=== PATIENT | female | born 1955 | race Caucasian/White ===

== ENCOUNTER → 2019-01-03 | Outpatient (CLI) | payer OTHER ==
--- NOTE | 2019-01-05 23:34 | MR ---
EXAMINATION TYPE: MR elbow LT wo con DATE OF EXAM: 01/03/2019 COMPARISON: None HISTORY: Left elbow pain x 7 months Standard multiplanar, multisequence MRI departmental protocol Multiplanar, multisequence images of the left elbow were acquired. FINDINGS: There is elbow joint effusion. The triceps tendon is intact. There is 7 mm degenerative cys t in the proximal ulna. This is seen at the articular surface with the humerus. There is some mild in creased signal also in the coronoid process of the ulna and in the medial aspect of the proximal ulna consistent with bone edema.. The distal humerus is intact. Collateral ligaments appear intact. Radia l head is intact. The biceps tendon is intact. Brachialis tendon is intact. I see no fracture line. There is no evidenc e of soft tissue mass. IMPRESSION: There is a large elbow joint effusion. There is multiple areas of edema involving the proximal ulna c onsistent with bone bruise and degenerative cyst formation. This is seen in the olecranon process, th e coronary process and the articular surface of the ulna. No fracture seen. No evidence of ligament o r tendon tear.
== END ==
LOC: RADMRIMAIN 18:24
PROVIDERS: ATTEND Family Medicine
DX: M25.422 Effusion, left elbow (principal); R60.1 Generalized edema

== ENCOUNTER → 2019-01-23 | Outpatient (CLI) | payer OTHER ==
--- NOTE | 2019-01-24 08:01 | BD ---
EXAMINATION TYPE: Axial Bone Density DATE OF EXAM: 01/23/2019 COMPARISON: NONE CLINICAL HISTORY: 63 YR OLD FEMALE...ICD-10 CODE: Z78.0 POSTMENOPAUSAL Height: 59.3 Weight: 165 FRAX RISK QUESTIONS: Family History (Parent hip fracture): YES Glucocorticoids (More than 3mos): YES (Ex: prednisone, prednisolone, methylprednisolone, dexamethasone, and hydrocortisone). Rheumatoid Arthritis: YES RISK FACTORS HISTORY OF: Family History of Osteoporosis: YES, MOTHER AND SISTER, MOTHER WITH BACK FRACTURES Postmenopausal woman: YES AT AGE 53 MEDICATIONS: Prednisone or other steroids: YES, PREDNISONE, RA, NEWLY DIAGNOSED FOR ABOUT 2 MOS NOW Additional Medications: NOTHING ADDITIONAL TO NOTE FOR THIS TEST Additional History: RA EXAM MEASUREMENTS: Bone mineral densitometry was performed using the [employer] System. Bone mineral density as measured about the Lumbar spine is: ----- L1-L4(G/cm2): 0.992 T Score Values are as follows: ----- L1: -2.5 ----- L2: -1.9 ----- L3: -1.6 ----- L4: -0.6 ----- L1-L4: -1.6 Bone mineral density FIRST DEXA SCAN AT [facility] Bone mineral density about the R hip (g/cm2): 0.823 Bone mineral density about the L hip (g/cm2): 0.853 T Score values are as follows: -----R Neck: -1.9 -----L Neck: -2.0 -----R Total: -1.5 -----L Total: -1.2 Bone mineral density FIRST DEXA AT [facility] FRAX%s: THERE IS A 20.7% CHANCE FOR A MAJOR OSTEOPOROTIC FX AND A 1.9% FOR HIP....PROBABILITY FOR FX IN 10 YRS TIME IMPRESSION: Osteopenia (T Score between -2.5 and -1). There is slightly increased risk of fracture and the patient may be considered for treatment. Re-Screen 2-5 years. NOTE: T-SCORE=SD OF THE YOUNG ADULT MEAN.
--- NOTE | 2019-01-27 08:13 | MM ---
Reason for exam: screening (asymptomatic). History: Patient is postmenopausal. Family history of breast cancer in paternal aunt at age 60. Physical Findings: A clinical breast exam by your physician is recommended on an annual basis and results should be correlated with mammographic findings. MG Screening Mammo w CAD Bilateral CC and MLO view(s) were taken. The breast tissue is heterogeneously dense. This may lower the sensitivity of mammography. There are benign appearing oval circumscribed stable left upper inner quadrant masses back to 2013. Benign appearing bilateral calcifications. No suspicious abnormality. No significant changes when compared with prior studies. ASSESSMENT: Benign, BI-RAD 2 RECOMMENDATION: Routine screening mammogram of both breasts in 1 year.
== END | disposition home or self-care (01) ==
LOC: RADMAMWWP 15:14
PROVIDERS: ATTEND Family Medicine
DX: Z12.31 Encounter for screening mammogram for malignant neoplasm of breast (principal); M85.80 Other specified disorders of bone density and structure, unspecified site; Z78.0 Asymptomatic menopausal state
CPT/HCPCS: 77067; 77080

== ENCOUNTER → 2020-02-24 | Outpatient (CLI) | payer OTHER ==
[2020-02-24 16:59] LABS: HCT 33.6 % (34.0-46.0); HGB 11.3 gm/dL (11.4-16.0); MCH 30.6 pg (25.0-35.0); MCHC 33.6 g/dL (31.0-37.0); MCV 91.1 fL (80.0-100.0); Mean Platelet Volume 7.8; Platelet Count 273 k/uL (150-450); RBC 3.69 m/uL (3.80-5.40); RDW 13.4 % (11.5-15.5); WBC 6.1 k/uL (3.8-10.6)
[2020-02-24 17:07] LABS: ALT 25 U/L (4-34); AST 29 U/L (14-36); African American GFR (CKD) >90 (>60 ml/min/1.73 sqM); Albumin 4.5 g/dL (3.5-5.0); Alkaline Phosphatase 70 U/L (38-126); Anion Gap 8 mmol/L; Blood Urea Nitrogen 17 mg/dL (7-17); Calcium 9.7 mg/dL (8.4-10.2); Carbon Dioxide 24 mmol/L (22-30); Chloride 106 mmol/L (98-107); Glucose 95 mg/dL (74-99); Non-African American GFR(CKD) >90 (>60 ml/min/1.73 sqM); Potassium 4.2 mmol/L (3.5-5.1); Sodium 138 mmol/L (137-145); Total Bilirubin 0.6 mg/dL (0.2-1.3); Total Protein 7.7 g/dL (6.3-8.2)
[2020-02-24 17:30] LABS: Appearance,Urine Clear (Clear); Bacteria,Urine Many /hpf; Bilirubin,Urine Negative (Negative); Blood,Urine Small (Negative); Color,Urine Light Yellow; Glucose,Urine (UA) Negative (Negative); Hyaline Casts,Urine 1 /lpf (0-2); Ketones,Urine Negative (Negative); Leukocyte Esterase,Urine Negative (Negative); Mucus,Urine Rare /hpf; Nitrite,Urine Negative (Negative); Protein,Urine Negative (Negative); Specific Gravity,Urine 1.009 (1.001-1.035); Squamous Epithelial Cell,Urine <1 /hpf (0-4); Urobilinogen,Urine <2.0 mg/dL (<2.0); WBC,Urine 2 /hpf (0-5)
[2020-02-24 18:32] LABS: Partial Thromboplastin Time 24.8 sec (22.0-30.0)
== END | disposition home or self-care (01) ==
LOC: LABWHC1 16:11
PROVIDERS: ATTEND Orthopaedic Surgery
DX: Z01.818 Encounter for other preprocedural examination (principal); Z01.812 Encounter for preprocedural laboratory examination; M17.12 Unilateral primary osteoarthritis, left knee
CPT/HCPCS: 80053; 81001; 85027; 85610; 85730; 87070

== ENCOUNTER 2020-03-03 08:42 | Day surgery (SDC) | payer OTHER ==
[2020-02-27 09:47] VITALS: BMI 33.2
[~2020-03-03 08:42] MED LIST: ACETAMINOPHEN TAB 500 MG TAB PO ONE; FAMOTIDINE 20 MG/2 ML VIAL IV PRN; HYDROmorphone 0.5 MG/0.5 ML SYRINGE IVP PRN; LIDOCAINE 1% (10MG/ML) FOR IV START INTRADERMA PRN; MELOXICAM 7.5 MG TAB PO ONE; ONDANSETRON 4 MG/2 ML VIAL IVP ONE; TRANEXAMIC ACID 1,000 MG in SODIUM CHLORIDE 0.9% 100 ML IVPB ONE
[2020-03-03] MEDS: LACTATED RINGERS 1,000 ML IV SCH ×4 (09:36→21:18)
[2020-03-03] MEDS ORDERED: MIDAZOLAM 2 MG/2 ML VIAL IV ONE (10:08)
[2020-03-03] MEDS ORDERED: fentaNYL (PF) 50 MCG/ML 2 ML AMP IV ONE (10:09)
[2020-03-03] MEDS ORDERED: ROPIVACAINE 0.2%-NS ON-Q PUMP 1,090 MG, EMPTY PAIN BALL 1 EACH MISCELLANE PRN (10:59)
--- NOTE | 2020-03-03 11:02 | P.ANPRN ---
Procedure Note - Anesthesia - Nerve Block Performed Left Adductor Canal Time Out Performed: Yes (:) Date of Procedure: 03/03/20 Procedure Start Time: Procedure Stop Time: Location of Patient: PreOp Indication: Acute Post-Operative Pain, Requested by Surgeon (Dr Bansal) Sedation Type: Sedate with meaningful contact maintained Preparation: Sterile Prep, Sterile Dressing Position: Supine Catheter: Indwelling Needle Types: Pajunk Needle Gauge: 21 Ultrasound used to visualize needle placement: Yes Ultrasound used to observe medication spread: Yes Injectate: 0.5% Ropivacaine (see comment for volume) (20cc) Blood Aspirated: No Pain Paresthesia on Injection Noted: No Resistance on Injection: Normal Image Stored and Saved: Yes Events: Uneventful and Well Tolerated
[2020-03-03] MEDS ORDERED: TRANEXAMIC ACID 1,000 MG/10 ML VIAL ONE (11:34)
[2020-03-03] MEDS ORDERED: PROPOFOL 10 MG/ML 20 ML VIAL IV ONE (11:34)
[2020-03-03] MEDS ORDERED: LIDOCAINE 1% INJ 10MG/ML (20 ML MDV) ONE (11:34)
[2020-03-03] MEDS ORDERED: fentaNYL (PF) 50 MCG/ML 2 ML AMP ONE (11:34)
[2020-03-03] MEDS ORDERED: MIDAZOLAM 2 MG/2 ML VIAL ONE (11:34)
[2020-03-03] MEDS ORDERED: SODIUM CHLORIDE 0.9% 100 ML BAG ONE (11:34)
[2020-03-03] MEDS ORDERED: ceFAZolin 3,000 MG in SODIUM CHLORIDE 0.9% IRRIGATIO 3,000 ML IRRIGATION ONE (11:37)
[2020-03-03] MEDS: ROPIVACAINE 246.25 MG, EPINEPHrine 0.5 MG, KETOROLAC 30 MG, cloNIDine HCL/PF 80 MCG, WA... MISCELLANE ONE ×10 (12:08→12:28)
[2020-03-03] MEDS ORDERED: LACTATED RINGERS 1,000 ML IV ONE ×2 (12:47→12:59)
--- NOTE | 2020-03-03 13:09 | P.OP ---
Date of Procedure: 03/03/20 Procedure(s) Performed: PREOPERATIVE DIAGNOSIS: Left knee severe osteoarthritis with genu varum POSTOPERATIVE DIAGNOSIS: Left knee severe osteoarthritis with genu varum OPERATION: Left knee cemented total replacement arthroplasty. ANESTHESIA: Spinal ESTIMATED BLOOD LOSS: 50 ml. A P SUPERVISOR: Brandi Reilly PA-C (assistance with: patient positioning, retraction, exposure, hemostasis, leg positioning, implantation, irrigation, closure, dressing) COMPLICATIONS: None apparent. COMPONENTS IMPLANTED: Journey II total knee system from [employer], [place] INDICATIONS: Mrs. Becerril is a 64 year old female with a history of left knee osteoarthritis. The patient's knee is end-stage, and conservative management has failed. The operation of knee replacement has been discussed at length in the office, as well as potential risks and complications. These are inclusive of, but not limited to: bleeding, infection, scarring, discomfort, blood vessel and nerve damage, need for further surgery, failure to relieve symptoms, persistence, recurrence, or worsening of problems, loosening, dislocation, wear, blood clot, pulmonary embolism, , gait dysfunction, stiffness, and other risks as discussed in the office. The patient elects to proceed and the consent form has been signed. PROCEDURE: The patient was taken to the operating room and positioned on the operating room table in the supine position. Anesthesia was initiated. Care was taken to make sure that all pressure points were adequately padded. The operative lower extremity was prepped and draped in the usual aseptic fashion using ChloraPrep. Ioban drape was used for the case and the patient received intravenous antibiotics within one hour of the incision. A pneumotourniquet and leg lindsay were used for the case. The limb was exsanguinated with an Esmarch bandage and the tourniquet was inflated to 350 mmHg. Time-out was called confirming the patient's identity, side, procedure and administration of antibiotics and tranexamic acid. The incision was then created midline directly over the left knee, carried down through skin and into the subcutaneous tissues and down to fascia. Full thickness subcutaneous medial flap was developed. Medial parapatellar arthrotomy was performed and the interior of the knee was inspected. There was end-stage osteoarthritis of the knee with a mild to moderate genu varum type deformity. The fat pad was excised and proximal medial release on the tibia was completed using meticulous dissection and a curved osteotome. The anterior cruciate ligament was taken down. Note was made of significant attrition of the anterior and significant degenerative appearance of the cruciate ligaments. The exposure was excellent. The knee was flexed 90 degrees and the patella was everted. The [employer] pre- made distal cutting block was attached and pinned into position. The planned cut was analyzed visually and with the alignment glynn and found to be satisfactory without the need for any adjustment. The oscillating saw was then used to make the distal femoral cut and make the alignment holes for the 5 in 1 block. This cut was confirmed to be flat with the flat end of an osteotome. The 5 in 1 block was then used to create the anterior posterior condylar resections and the chamfer cuts. The retractors were placed around the tibia and the tibial surface was addressed. The [employer] pre-made guide was placed onto the exposed tibial surface and pinned into position to ramona the rotational alignment. The alignment of the guide was checked for depth of plannned resection, slope, and varus valgus. Guide was confirmed to be in good position and the tibial cut was then created with protection of the posterior neurovascular structures and the collateral ligaments. The tibial cut surface was removed and sized. Spacer block technique was then used to confirm that the flexion and extension gaps were equal. Soft tissue releases and adjustment of the tibial and/or femoral cuts were made, as necessary, until the gaps were equal. This included release of the posterior cruciate ligament, which was excessively tight in this patient. Prior to placing trial components, anesthetic solution consisting of ropivicaine with epinephrine, ketorolac, and clonidine was injected carefully and methodically in a grid pattern using aspiration technique into the soft tissue around the knee circumferentially, starting with the deeper tissues first and progressing to fascia, and then finally the skin/subcutaneous tissue. Particular care was taken when injecting the posterior capsule, with avoidance of the midline posterior area. The trial components were inserted. The tibial tray was allowed to self center and the patella was noted to track very well. The position of the tibial component was marked and noted to be nearly exactly aligned with the pre-drilled holes from the [employer] guide. The tibia was then finished for a stemmed tibial component. Patellar resurfacing was performed using a reamer. The size of the required patellar component was estimated and the patellar surface was then reamed down to a residual thickness which would recreate the [place] thickness with the component. The exact placement of the patellar component was adjusted for position based on preoperative x-rays and intraoperative findings. Trial components were removed and the cut surfaces of the bone were pulse lavaged thoroughly and dried. Cement was mixed on the back table and applied to the final components. Cement was then applied to the tibial surface and pressurized into the surface using finger pressurization technique. The tibial component was then applied and excess cement was removed after it was impacted securely and noted to be flush with the cut surface. In similar fashion, the cement was applied to the cut femoral surface, pressurized in using finger pressurization and the component was impacted into place. Excess cement was removed. The polyethylene spacer was then implanted and locked into position. The patellar component was then applied in similar technique and a patellar clamp was used to hold the patella in place as the cement hardened. Once the cement had fully hardened, the knee was reinspected. Any other cement extrusion was removed and final kinematic testing showed range of motion from 0 to 130 degrees with excellent stability, both medially and laterally and appropriate alignment of the leg. Patellar tracking was excellent. The knee was then thoroughly pulse lavaged with normal saline. The tourniquet was deflated and hemostasis was obtained with electrocautery and IV tranexamic acid, 1 g given at the start of the operation and 1 g at the start of closure. Closure was with #2 Ethibond in the fascia/capsule and supplemented with #2 Quill, 2-0 Vicryl suture was used for the subcutaneous tissues and 3-0 Quill for the skin. Dermabond was then applied. Optifoam dressing thereafter. A lightly compressive dressing was applied using Webril and an Castro wrap. The patient was then transferred to stretcher and taken to the recovery room in stable condition. Sponge and needle counts were correct.
[2020-03-03] MEDS ORDERED: MAGNESIUM HYDROXIDE 2,400 MG/10 ML CUP PO PRN (13:53)
[2020-03-03] MEDS ORDERED: HYDROcodone/APAP 5-325MG 1 EACH TAB PO PRN ×2 (13:53)
[2020-03-03] MEDS ORDERED: bisacodyL 10 MG SUPP RECTAL PRN (13:53)
[2020-03-03] MEDS ORDERED: hydrOXYzine pamoate 25 MG CAP PO PRN (13:53)
[2020-03-03] MEDS ORDERED: HYDROmorphone 0.5 MG/0.5 ML SYRINGE IVP PRN ×2 (13:53)
[2020-03-03] MEDS ORDERED: HYDROmorphone 1 MG/ML 1 ML SYRINGE IVP PRN (13:53)
[2020-03-03] MEDS ORDERED: NA PHOS,M-B/NA PHOS,DI-BA 133 ML ENEMA RECTAL PRN (13:53)
[2020-03-03] MEDS ORDERED: NALOXONE 0.4 MG/ML 1 ML VIAL IV PRN (13:53)
--- NOTE | 2020-03-03 15:19 | XR ---
EXAMINATION TYPE: XR knee limited LT DATE OF EXAM: 03/03/2020 CLINICAL HISTORY: Left knee pain and arthritis status post total knee replacement. TECHNIQUE: Portable AP and crosstable lateral views of the left knee are obtained immediately postop eratively. COMPARISON: None FINDINGS: Metallic hardware from total left knee arthroplasty is seen and appears satisfactory in al ignment and position. There is evidence of recent surgery with diffuse subcutaneous gas and tissue i rregularity. No unexpected radiopaque foreign body. No acute fracture or dislocation seen. IMPRESSION: METALLIC HARDWARE FROM TOTAL LEFT KNEE ARTHROPLASTY IS SATISFACTORY IN ALIGNMENT.
[2020-03-03] MEDS: ASPIRIN 81 MG PO SCH (20:40)
[2020-03-03] MEDS ORDERED: SENNOSIDES-DOCUSATE SODIUM 1 EACH TAB PO SCH (21:00)
[2020-03-04 07:45] VITALS: BP 125/73; PULSE 69; RESP 17; TEMP 98.6
[2020-03-04] MEDS: ASPIRIN 81 MG PO SCH (08:00)
--- NOTE | 2020-03-04 08:48 | P.DS ---
Providers Expected date of discharge: 03/04/20 Attending physician: Isma Bansal Consults: 03/03/20 13:53 Consult Physician Routine Consulting Provider: Alin Escamilla Consult Reason/Comments: Medical management Do you want consulting provider notified?: Yes Primary care physician: Rajni Cortez - Discharge Diagnosis(es) (1) Primary localized osteoarthritis of left knee Current Visit: Yes Status: Acute (2) Status post total left knee replacement Current Visit: Yes Status: Acute Hospital Course: This is a 64 -year-old female who was last seen with complaint of continued left knee pain. The patient has a known history of degenerative arthritis of the left knee and presents to discuss surgical options. After discussion and consideration the patient elects to proceed with total left knee arthroplasty. The patient is seen preoperatively by and cleared for surgery. The patient is admitted to [facility] for total left knee arthroplasty. The procedures performed without complication or sequelae. She is doing well postoperatively. Vital signs are stable at discharge. Labs are stable at discharge. The patient was on 2 L of O2 per nasal cannula but sats are 94 on room air after ambulation today.The patient is ambulating well with walker with minimal assistance. The patient is discharged to home on postop day #1 pending medical clearance. Please see orders and refer to the med rec for accurate list of medications. Plan - Discharge Summary Discharge Rx Participant: Yes New Discharge Prescriptions: New Aspirin [Adult Low Dose Aspirin EC] 81 mg PO BID #1 tablet. Meloxicam [Mobic] 1 - 2 tab PO DAILY PRN #30 tab PRN Reason: Pain HYDROcodone/APAP 7.5-325MG [Jal 7.5-325] 1 - 2 tab PO Q4-6H PRN #42 tab PRN Reason: Pain Sennosides-Docusate Sodium [Senokot-S] 1 tab PO BID #60 tablet hydrOXYzine pamoate [Vistaril] 25 mg PO Q4-6H #30 capsule No Action Ibuprofen 200 mg PO Q8H Ibandronate Sodium [Boniva] 150 mg PO QMONTHLY Methotrexate [Xatmep Oral Soln] 25 mg PO WE Folic Acid(Dose Unknown) 1 tab PO DAILY Discharge Medication List Folic Acid(Dose Unknown) 1 tab PO DAILY 02/27/20 [History] Ibandronate Sodium [Boniva] 150 mg PO QMONTHLY 02/27/20 [History] Ibuprofen 200 mg PO Q8H 02/27/20 [History] Methotrexate [Xatmep Oral Soln] 25 mg PO WE 02/27/20 [History] Aspirin [Adult Low Dose Aspirin EC] 81 mg PO BID #1 tablet. 03/03/20 [Rx] HYDROcodone/APAP 7.5-325MG [Jal 7.5-325] 1 - 2 tab PO Q4-6H PRN #42 tab 03/03/20 [Rx] Meloxicam [Mobic] 1 - 2 tab PO DAILY PRN #30 tab 03/03/20 [Rx] Sennosides-Docusate Sodium [Senokot-S] 1 tab PO BID #60 tablet 03/03/20 [Rx] hydrOXYzine pamoate [Vistaril] 25 mg PO Q4-6H #30 capsule 03/03/20 [Rx] Follow up Appointment(s)/Referral(s): Brandi Reilly, PAC [PH[employer]IC[employer]] - 2 Weeks Activity/Diet/Wound Care/Special Instructions: May bear wt as tolerated w walker. Keep optifoam dressing in place 7-10 days. May shower. Discharge Disposition: HOME WITH HOME HEALTH SERVICES
[2020-03-04] MEDS ORDERED: MELOXICAM 7.5 MG TAB PO SCH (09:00)
[2020-03-04 09:53] LABS: Basophils % (A) 0 %; Eosinophils % (A) 1 %; HCT 29.8 % (34.0-46.0); HGB 10.1 gm/dL (11.4-16.0); Lymphocytes # (A) 0.9 k/uL (1.0-4.8); Lymphocytes % (A) 15 %; MCH 31.3 pg (25.0-35.0); MCHC 33.9 g/dL (31.0-37.0); MCV 92.2 fL (80.0-100.0); Mean Platelet Volume 8.2; Monocytes # (A) 0.2 k/uL (0-1.0); Monocytes % (A) 4 %; Neutrophils # (A) 4.7 k/uL (1.3-7.7); Neutrophils % (A) 79 %; Platelet Count 228 k/uL (150-450); RBC 3.23 m/uL (3.80-5.40); RDW 13.3 % (11.5-15.5); WBC 5.9 k/uL (3.8-10.6)
--- NOTE | 2020-03-04 09:56 | P.PN ---
Progress Note - Text Progress Note Date: 03/04/20 Anesthesia Post-Operative pain management follow up 64 year old female who is post-op day #1 following left TKA. Patient seen in her room at 630 am on 03/04/2020 Patient up and showered. Reports no pain in the anterior/medial/lateral aspect of the left knee. Complains of some mild discomfort in the posterior part of the left knee with a VAS of 3-4/10. Adductor canal catheter in situ and infusing well. Patient to be discharged to home today.
--- NOTE | 2020-03-04 11:32 | P.CONS ---
History of Present Illness - Reason for Consult Preoperative complication management - History of Present Illness This is a pleasant 64-year-old female admitted for elective left knee arthroplasties patient underwent surgery clinically doing well patient denied any fever chills dysuria nausea vomiting cough.. Patient doesn't have a Platt catheter patient has Bad Attack and off for Pain Management. Patient Doesn't Have Any Significant Medical Problems Vitals Are Stable Can Be Discharged from Medical Perspective and DVT prophylaxis as per primary service. Review of Systems REVIEW OF SYSTEMS: CONSTITUTIONAL: No fever, no malaise, no fatigue. HEENT: No recent visual problems or hearing problems. Denied any sore throat. CARDIOVASCULAR: No chest pain, orthopnea, PND, no palpitations, no syncope. PULMONARY: No shortness of breath, no cough, no hemoptysis. GASTROINTESTINAL: No diarrhea, no nausea, no vomiting, no abdominal pain. NEUROLOGICAL: No headaches, no weakness, no numbness. HEMATOLOGICAL: Denies any bleeding or petechiae. GENITOURINARY: Denies any burning micturition, frequency, or urgency. MUSCULOSKELETAL/RHEUMATOLOGICAL: Denies any joint pain, swelling, or any muscle pain. ENDOCRINE: Denies any polyuria or polydipsia. The rest of the 14-point review of systems is negative. Past Medical History Past Medical History: GERD/Reflux, Osteoarthritis (OA), Rheumatoid Arthritis (RA) Additional Past Medical History / Comment(s): hx anemia, History of Any Multi-Drug Resistant Organisms: None Reported Past Surgical History: Section Additional Past Surgical History / Comment(s): C/S x3 Past Anesthesia/Blood Transfusion Reactions: No Reported Reaction Past Psychological History: No Psychological Hx Reported Smoking Status: Never smoker Past Alcohol Use History: Occasional Past Drug Use History: None Reported - Past Family History Mother Family Medical History: Cancer Medications and Allergies Home Medications Medication Instructions Recorded Confirmed Type Folic Acid(Dose Unknown) 1 tab PO DAILY 02/27/20 03/03/20 History Ibandronate Sodium [Boniva] 150 mg PO QMONTHLY 02/27/20 03/03/20 History Ibuprofen 200 mg PO Q8H 02/27/20 03/03/20 History Methotrexate [Xatmep Oral Soln] 25 mg PO WE 02/27/20 03/03/20 History Aspirin [Adult Low Dose Aspirin EC] 81 mg PO BID #1 tablet. 03/03/20 Rx HYDROcodone/APAP 7.5-325MG [[place] 1 - 2 tab PO Q4-6H PRN #42 tab 03/03/20 Rx 7.5-325] Meloxicam [Mobic] 1 - 2 tab PO DAILY PRN #30 tab 03/03/20 Rx Sennosides-Docusate Sodium 1 tab PO BID #60 tablet 03/03/20 Rx [Senokot-S] hydrOXYzine pamoate [Vistaril] 25 mg PO Q4-6H #30 capsule 03/03/20 Rx Allergies Allergy/AdvReac Type Severity Reaction Status Date / Time No Known Allergies Allergy Verified 03/03/20 09:40 Physical Exam Vitals: Vital Signs Temp Pulse Pulse Resp BP BP Pulse Ox 03/04/20 08:00 69 17 03/04/20 07:15 98.6 F 69 17 125/73 98 03/04/20 01:11 98.2 F 63 16 115/70 100 03/03/20 23:45 16 03/03/20 19:05 18 03/03/20 18:41 98.4 F 57 L 18 164/83 100 03/03/20 16:53 60 161/81 03/03/20 16:39 42 L 154/67 03/03/20 16:23 55 L 144/68 03/03/20 16:08 58 L 170/72 03/03/20 16:00 60 17 03/03/20 15:53 59 L 133/75 03/03/20 15:38 53 L 163/75 03/03/20 15:28 47 L 167/82 03/03/20 15:08 47 L 151/75 03/03/20 14:48 97.5 F L 60 17 144/62 03/03/20 14:31 49 L 16 147/69 99 03/03/20 14:17 55 L 16 139/63 97 03/03/20 14:02 58 L 16 142/65 97 03/03/20 13:47 96.8 F L 55 L 16 135/61 96 Intake and Output 03/03/20 03/04/20 03/04/20 22:59 06:59 14:59 Intake Total 850 Balance 850 Intake: Intake, IV Titration 850 Amount Lactated Ringers 1,000 ml 800 @ 100 mls/hr IV .Q10H [facility] Rx#:[id number] ceFAZolin 2 gm In Sodium 50 Chloride 0.9% 50 ml @ 100 mls/hr IVPB Q8H [facility] Rx#: [id number] Other: Voiding Method Toilet Toilet # Voids 1 2 PHYSICAL EXAMINATION: GENERAL: The patient is alert and oriented x3, not in any acute distress. Well developed, well nourished. HEENT: Pupils are round and equally reacting to light. EOMI. No scleral icterus. No conjunctival pallor. Normocephalic, atraumatic. No pharyngeal erythema. No thyromegaly. CARDIOVASCULAR: S1 and S2 present. No murmurs, rubs, or gallops. PULMONARY: Chest is clear to auscultation, no wheezing or crackles. ABDOMEN: Soft, nontender, nondistended, normoactive bowel sounds. No palpable organomegaly. MUSCULOSKELETAL: Deferred to orthopedic surgery EXTREMITIES: No cyanosis, clubbing, or pedal edema. NEUROLOGICAL: Gross neurological examination did not reveal any focal deficits. SKIN: No rashes. Results CBC & Chem 7: 03/04/20 08:23 Labs: Abnormal Lab Results - Last 24 Hours (Table) 03/04/20 Range/Units 08:23 RBC 3.23 L (3.80-5.40) m/uL Hgb 10.1 L (11.4-16.0) gm/dL Hct 29.8 L (34.0-46.0) % Lymphocytes # 0.9 L (1.0-4.8) k/uL Assessment and Plan Plan: Hyperlipidemia arthroplasty: Patient is clinically doing well postoperatively DVT prophylaxis as per primary service. Postoperatively patient is clinically doing well no complaints or medical issues patient had an episode of mild sinus bradycardia while she was sleeping which doesn't need any further intervention can be discharged from medical perspective -Gastroesophageal reflux disease -Osteoarthritis
== END 2020-03-04 12:53 | disposition home health service (06) ==
LOC: OR 08:42 → 4SSUR 13:37 → OR 03-04 12:53
PROVIDERS: ATTEND Orthopaedic Surgery
DX: M17.12 Unilateral primary osteoarthritis, left knee (principal); M21.162 Varus deformity, not elsewhere classified, left knee; M06.9 Rheumatoid arthritis, unspecified; D64.9 Anemia, unspecified; E78.5 Hyperlipidemia, unspecified; K21.9 Gastro-esophageal reflux disease without esophagitis; Z98.891 History of uterine scar from previous surgery; Z97.3 Presence of spectacles and contact lenses; Z79.1 Long term (current) use of non-steroidal anti-inflammatories (NSAID); Z79.82 Long term (current) use of aspirin; Z79.899 Other long term (current) drug therapy; Z80.9 Family history of malignant neoplasm, unspecified; Z82.49 Family history of ischemic heart disease and other diseases of the circulatory system
CPT/HCPCS: 27447; 97110; 97161; 64448; 76942; 85025; 88300; 73560; C1713; C1776; J2250; J0171; J0690 ×2; J2405; J2001; J3010; J1885; J2795 ×2; J2704; J0735

== ENCOUNTER → 2023-08-02 | Outpatient (CLI) | payer MEDICARE ==
--- NOTE | 2023-08-03 09:51 | BD ---
EXAMINATION TYPE: Axial Bone Density DATE OF EXAM: 08/02/2023 CLINICAL HISTORY: 67 years old Female. ICD-10 CODE: Z78.0 Height: 60 Weight: 174 FRAX RISK QUESTIONS: Alcohol (3 or more units per day): no Family History (Parent hip fracture): yes Glucocorticoids (More than 3mos): no (Ex: prednisone, prednisolone, methylprednisolone, dexamethasone, and hydrocortisone). History of Fracture in Adulthood: no Secondary Osteoporosis: 1. Type 1 Diabetes: no 2. Hyperthyroidism: no 3. Menopause before 45: no 4. Malnutrition: no 5. Chronic liver disease: no Rheumatoid Arthritis: yes Current Tobacco Use: no RISK FACTORS HISTORY OF: Surgery to Spine/Hip(right/left)/Wrist (right/left): no MEDICATIONS: EXAM MEASUREMENTS: Bone mineral densitometry was performed using the [employer]. Bone mineral density as measured about the Lumbar spine is: ----- L1-L4(G/cm2): 0.929 T Score Values are as follows: ----- L1: -3.3 ----- L2: -2.3 ----- L3: -2.3 ----- L4: -1.1 ----- L1-L4: -2.1 Z Score Values are as follows: ----- L1: -2.2 ----- L2: -1.1 ----- L3: -1.2 ----- L4: 0.0 ----- L1-L4: -1.0 Bone mineral density has: decreased -6.4 % since study of: 01.23.2019 Bone mineral density about the R hip (g/cm2): 0.766 Bone mineral density about the L hip (g/cm2): 0.800 T Score values are as follows: -----R Neck: -2.3 -----L Neck: -2.4 -----R Total: -1.9 -----L Total: -1.6 Z Score values are as follows: -----R Neck: -1.2 -----L Neck: -1.2 -----R Total: -1.0 -----L Total: -0.8 Bone mineral density has: decreased -6.6 % since study of: 01.23.2019 FRAX%s: The graph provided illustrates a 15.7% chance for a major osteoporotic fx and a 2.1% chance f or the hips probability for fx in 10 years time. IMPRESSION: Osteopenia (T Score between -2.5 and -1). There is slightly increased risk of fracture and the patient may be considered for treatment. Re-Screen 2-5 years. NOTE: T-SCORE=SD OF THE YOUNG ADULT MEAN.
--- NOTE | 2023-08-06 08:38 | MM ---
Reason for Exam: Screening (asymptomatic). Last mammogram was performed 4 year(s) and 6 month(s) ago. Patient History: Menarche at age 13. First Full-Term at age 21. Postmenopausal. Paternal aunt had breast cancer, age 60. Risk Values: Leatha 5 year model risk: 1.3%. NCI Lifetime model risk: 5.0%. Prior Study Comparison: 01/23/2019 Bilateral Screening Mammogram, [facility]. Tissue Density: There are scattered fibroglandular densities. Findings: Analyzed By CAD. There is no suspicious group of microcalcifications or new suspicious mass. Benign-appearing calcifications bilaterally. Overall Assessment: Benign, BI-RAD 2 Management: Screening Mammogram of both breasts in [address] [facility] will attempt to contact patient to return for supplemental views and ultrasound if indicated. Patient should continue monthly self-breast exams. A clinical breast exam by your physician is recommended on an annual basis. This exam should not preclude additional follow-up of suspicious palpable abnormalities. Note on Leatha scores and lifetime risk: 1. A Leatha score greater than 3% is considered moderate risk. If this is the case, consider specialist referral to assess eligibility for a risk reducing agent. 2. If overall lifetime risk for the development of breast cancer is 20% or higher, the patient may qualify for future screening with alternating mammogram and breast MRI. Electronically signed and approved by: Erik Richards DO
== END | disposition home or self-care (01) ==
LOC: RADBDWWP 15:22
PROVIDERS: ATTEND Family Medicine
DX: Z12.31 Encounter for screening mammogram for malignant neoplasm of breast (principal); M06.9 Rheumatoid arthritis, unspecified; Z78.0 Asymptomatic menopausal state; M81.0 Age-related osteoporosis without current pathological fracture; M85.89 Other specified disorders of bone density and structure, multiple sites
CPT/HCPCS: 77063; 77067; 77080

== ENCOUNTER → 2024-08-22 | Outpatient (CLI) | payer MEDICARE ==
--- NOTE | 2024-08-22 14:40 | MM ---
Reason for Exam: Screening (asymptomatic). Last screening mammogram was performed 12 month(s) ago. Patient History: Menarche at age 13. First Full-Term at age 21. Postmenopausal. Paternal aunt had breast cancer, age 60. Risk Values: Leatha 5 year model risk: 0.9%. NCI Lifetime model risk: 3.3%. Prior Study Comparison: 01/23/2019 Bilateral Screening Mammogram, [facility]. 08/02/2023 Bilateral MG 3D screening mammo w/cad, [facility]. Tissue Density: The breasts are heterogeneously dense, which may obscure small masses. Findings: Analyzed By CAD. Right breast: There is no suspicious group of microcalcifications or new suspicious mass. Benign-appearing calcifications right breast. Left breast: There is no suspicious group of microcalcifications or new suspicious mass. Benign-appearing calcifications left breast. Overall Assessment: Benign, BI-RAD 2 Management: Screening Mammogram of both breasts in [address] [facility] will attempt to contact patient to return for supplemental views and ultrasound if indicated. Patient should continue monthly self-breast exams. A clinical breast exam by your physician is recommended on an annual basis. This exam should not preclude additional follow-up of suspicious palpable abnormalities. Note on Leatha scores and lifetime risk: 1. A Leatha score greater than 3% is considered moderate risk. If this is the case, consider specialist referral to assess eligibility for a risk reducing agent. 2. If overall lifetime risk for the development of breast cancer is 20% or higher, the patient may qualify for future screening with alternating mammogram and breast MRI. [facility], , 08/22/2024 2:36 PM. Electronically signed and approved by: Erik Richards DO
== END | disposition home or self-care (01) ==
LOC: RADMAMWWP 13:47
PROVIDERS: ATTEND Family Medicine
DX: Z12.31 Encounter for screening mammogram for malignant neoplasm of breast (principal); R92.333 Mammographic heterogeneous density, bilateral breasts; R92.1 Mammographic calcification found on diagnostic imaging of breast; Z78.0 Asymptomatic menopausal state; Z80.3 Family history of malignant neoplasm of breast
CPT/HCPCS: 77063; 77067